=== PATIENT | female | born 1965 | race Caucasian/White ===

== ENCOUNTER 2017-01-15 10:18 | Outpatient (CLI) | payer OTHER ==
--- NOTE | 2017-01-15 10:48 | DIAGNOSTIC IMAGING REPORT ---
PROCEDURE: XR CHEST 2 VIEW INDICATION: DISABILITY TECHNIQUE: PA and lateral views. COMPARISON: None. FINDINGS: Diffuse interstitial fibrosis. Heart and mediastinum are normal. Thorax is normal. IMPRESSION: 1. Diffuse interstitial fibrosis.
== END 2017-01-15 23:00 ==
LOC: XR SRH 10:18
DX: J43.9 Emphysema, unspecified (principal)